=== PATIENT | male | born 1945 | race Caucasian/White ===

== ENCOUNTER 2019-11-27 06:06 | Day surgery (SDC) | payer OTHER, SELFPAY ==
[2019-11-26 12:56] VITALS: BMI 29.9
[2019-11-27 06:21] VITALS: BP 166/86; PULSE 81; RESP 18; TEMP 36.4; O2SAT 97
[2019-11-27] MEDS: sodium chloride 0.9% 1,000 ML 30 ML IV (06:32)
--- NOTE | 2019-11-27 06:49 | ANES.PREANE2 ---
Pre-Anesthetic Assessment Pre-Anesthetic Assessment: Height/Weight: Height 1.65 m Weight 81.647 kg Temp Pulse Resp BP Pulse Ox 97.5 F L 81 18 166/86 97 11/27/19 06:21 11/27/19 06:21 11/27/19 06:21 11/27/19 06:21 11/27/19 06:21 Preop Diagnosis: RIGHT CARPAL TUNNEL SYNDROME Proposed Procedure: Operation Date: 11/27/19 07:50 Proposed Procedures p Carpal Tunnel Release 39403 G56.03(Right) - Sebas Alvarez MD Was Beta Stella taken within 24 hours: N/A Last intake: Intake Last Liquid Date 11/26/19 Last Liquid Time 19:00 Last Solid Date 11/26/19 Last Solid Time 19:00 Last Intake: 00:00 Social: Social History: Tobacco Packs per day: 5 cigarettes Pack years: 5 Exam: Pre-Anes Outpt Exam: alert, oriented x 3, clear to auscultation bilaterally and regular rate & rhythm Airway: Submandibular: WNL Cervical ROM: WNL MP: 1 Dentition: False History/ROS: No significant history except as noted Pulmonary: Pulmonary: None reported CV/HEM: CV/HEM: None reported : : None reported Hepatic: Hepatic: None reported GI: GI: None reported Metabolic: Metabolic: DM Comments: diet controlled Musc/skel: Musc/skel: None reported Neuropsych: Neuropsych: None reported Anesthetic Plan: ASA status: II Anesthesia: Regional (specify below) (rae block) Risk of > 500 ml blood loss (7ml/kg in children): No Meds/Allergies Current Medications: Current Medications Generic Name Dose Route Start Last Admin Trade Name Freq PRN Reason Stop Dose Admin Sodium Chloride 1,000 mls @ 30 ml s/hr 11/27/19 06:15 11/27/19 06:32 Sodium Chloride 0.9% IV 11/28/19 06:14 30 mls/hr .Q24H VASU Administration PFSH Anesthesia PFSH: Social History Smoking and tobacco status: current every day smoker cigarettes Alcohol intake: never Data Anesthesia Cardiac Studies: No Data to Display
--- NOTE | 2019-11-27 06:58 | PM.HPUD ---
H&P update H&P Update: DATE OF SURGERY/PROCEDURE: 11/27/19 DATE H&P PERFORMED: 11/14/19 H&P UPDATE INFORMATION: H&P completed within last 30 days and No changes to prior documentation PREOP DIAGNOSIS: RIGHT CARPAL TUNNEL SYNDROME PRIMARY INDICATION FOR PROCEDURE: Numbness and pain Right upper extremity PLANNED PROCEDURE: Operation Date: 11/27/19 07:50 Proposed Procedures p Carpal Tunnel Release [id number] G56.03(Right) - Sebas Alvarez MD Full H&P Medications/Allergies: Current Medications: Current Medications Generic Name Dose Route Start Last Admin Trade Name Freq PRN Reason Stop Dose Admin Sodium Chloride 1,000 mls @ 30 ml s/hr 11/27/19 06:15 11/27/19 06:32 Sodium Chloride 0.9% IV 11/28/19 06:14 30 mls/hr .Q24H VASU Administration Perinent History: Family History: Family History (Updated 11/14/19 @ 09:16 by Hanane Hernandez LPN) Denies family history of Diabetes CAD (coronary artery disease) Clotting disorder Dementia Hyperlipidemia Psychiatric illness Chronic kidney disease (CKD) Suicide Anesthesia complication Bleeding disorder Family history of premature coronary artery disease Lung disease Cancer Hypertension Stroke Social History: Social History Smoking and tobacco status: current every day smoker cigarettes Alcohol intake: never
--- NOTE | 2019-11-27 08:01 | PM.OP ---
Operative Report Date of procedure: November 27, 2019 Pre-op Diagnosis: RIGHT CARPAL TUNNEL SYNDROME Post-op diagnosis: same Procedure Done: Right carpal tunnel release Pathology: none sent Surgeon: Sebas Alvarez Anesthesia: Local ([place] block) Estimated blood loss (mL): 5 Tourniquet time (min): 28 Complications: None Findings: No masses or space-occupying lesions are seen within the carpal tunnel Condition: stable Disposition: same day Procedure: Patient was taken to the operating room and anesthesia provided by the anesthesia service. She was prepped and draped with the arm exposed. A timeout was performed. A 3 cm long incision was made in line with the fourth ray from the distal edge of the carpal tunnel extending proximally. The subcutaneous fat and palmar fascia was divided with a scalpel blade. Under loupe magnification the ulnar neurovascular bundle was identified distally. A hemostat could be passed under the transverse carpal ligament allowing the distal 25% to be divided. A slotted guide was then passed beneath the transverse carpal ligament and the middle 50% divided. Blunt scissors were then passed over the guide freeing the proximal ligament. The tourniquet was deflated. Hemostasis provided with electrocautery. Wound edges were infiltrated with 10 cc of a half percent Marcaine solution. Skin edges were reapproximated with 3-0 Prolene. Sterile dressings were applied. The patient was taken to the recovery room in stable condition
[2019-11-27 08:03] VITALS: BP 104/74; PULSE 75; RESP 18; TEMP 36.6; O2SAT 97
[2019-11-27 08:11] LABS: Glucose Point of Care 98 mg/dL (70-110)
[2019-11-27 08:29] VITALS: BP 136/70; PULSE 74; RESP 18; TEMP 36.6; O2SAT 97
== END 2019-11-27 08:37 | disposition home or self-care (01) ==
PROVIDERS: Family Provider Internal Medicine; PCP Internal Medicine; Visit Provider Orthopaedic Surgery
PROC: (CPT 64721; principal; 2019-11-27 07:50)
DX: G56.01 Carpal tunnel syndrome, right upper limb (principal); F17.210 Nicotine dependence, cigarettes, uncomplicated; E11.9 Type 2 diabetes mellitus without complications
CPT/HCPCS: 64721; 12345; 36416; 82962; J0690; J1885; J2001; J2270; J2405; J2704; J3490; J7030